=== PATIENT | female | born 1975 | race Caucasian/White ===

== ENCOUNTER 2023-04-09 00:06 | Emergency (ER) | payer OTHER ==
[~2023-04-09] VITALS: Ht 170.2 cm; Wt 110.8 kg
[2023-04-09 04:45] VITALS: BP 140/82; TEMP 98.3; O2SAT 96
== END 2023-04-09 04:55 | disposition home or self-care (01) ==
LOC: M ED 00:06
DX: Z04.1 Encounter for examination and observation following transport accident (principal); I10 Essential (primary) hypertension